=== PATIENT | female | born 1990 | race Caucasian/White ===

== ENCOUNTER 2017-07-15 20:18 | Emergency (ER) | payer SELFPAY ==
[~2017-07-15] VITALS: Ht 160 cm; Wt 55.3 kg
[~2017-07-15 20:18] MED LIST: ADDERALL 20 MG20 MG PO; AMOXICILLIN 50500 MG PO; CEPHALEXIN500 M1 PO; KETOROLAC10 MG PO; NORCO 325 MG-51 TAB PO; PAXIL20 M1 PO; TYLENOL 500MG500 MG PO
[2017-07-15] MEDS ORDERED: DULERA1 ARO IH (21:14)
[2017-07-15] MEDS ORDERED: CEPHALEXIN500 M1 PO (21:31)
[2017-07-15] MEDS ORDERED: NORCO 325 MG-51 TA1 PO (21:31)
[2017-07-15 22:36] VITALS: BP 118/87
== END 2017-07-15 22:36 | disposition home or self-care (01) ==
LOC: ED 20:18
DX: K04.7 Periapical abscess without sinus (principal); K03.81 Cracked tooth; F17.200 Nicotine dependence, unspecified, uncomplicated; F32.9 Major depressive disorder, single episode, unspecified; F41.9 Anxiety disorder, unspecified; F98.8 Other specified behavioral and emotional disorders with onset usually occurring in childhood and adolescence

== ENCOUNTER 2018-01-19 17:17 | Emergency (ER) | payer MEDICAID ==
[~2018-01-19] VITALS: Ht 160 cm; Wt 62.3 kg
[~2018-01-19 17:17] MED LIST changes: +DULERA1 ARO IH; +NORCO 325 MG-51 TA1 PO
[2018-01-19] MEDS ORDERED: RT ALBUTEROL CC18 GM IH (17:24)
[2018-01-19] MEDS ORDERED: PAROXETINE HYDR20 MG PO (17:24)
[2018-01-19 18:23] VITALS: BP 113/64
== END 2018-01-19 18:25 | disposition home or self-care (01) ==
LOC: ED 17:17
DX: S60.221A Contusion of right hand, initial encounter (principal); W22.01XA Walked into wall, initial encounter; Y92.89 Other specified places as the place of occurrence of the external cause; Z79.899 Other long term (current) drug therapy

== ENCOUNTER 2018-02-25 20:57 | Emergency (ER) | payer MEDICAID ==
[~2018-02-25] VITALS: Ht 160 cm; Wt 64.1 kg
[~2018-02-25 20:57] MED LIST changes: +PAROXETINE HYDR20 MG PO; +RT ALBUTEROL CC18 GM IH
[2018-02-25] MEDS ORDERED: CEPHALEXIN500 M1 PO (22:18)
[2018-02-25] MEDS ORDERED: NORCO 325 MG-51 TA1 PO (22:18)
[2018-02-25 22:24] VITALS: BP 125/83
== END 2018-02-25 22:24 | disposition home or self-care (01) ==
LOC: ED 20:57
DX: S02.5XXA Fracture of tooth (traumatic), initial encounter for closed fracture (principal); Z79.899 Other long term (current) drug therapy; Z88.1 Allergy status to other antibiotic agents; Z88.0 Allergy status to penicillin
CPT/HCPCS: J1885

== ENCOUNTER 2021-10-03 17:31 | Emergency (ER) | payer MEDICAID ==
[2021-10-03 19:24] VITALS: BP 122/99
== END 2021-10-03 19:24 | disposition home or self-care (01) ==
LOC: ED 17:31
DX: S92.411A Displaced fracture of proximal phalanx of right great toe, initial encounter for closed fracture (principal); Z28.311 Partially vaccinated for COVID-19; W22.8XXA Striking against or struck by other objects, initial encounter